=== PATIENT | male | born 1960 | race Caucasian/White ===

== ENCOUNTER 2023-04-03 09:04 | Emergency (ER) | payer OTHER, SELFPAY ==
--- NOTE | 2023-04-03 09:47 | ED.URI ---
HPI - URI/Sore Throat General Chief Complaint: Upper Respiratory Infection Stated Complaint: chest congestion Time Seen by Provider: 04/03/23 09:35 Source: patient Mode of arrival: ambulatory Limitations: no limitations History of Present Illness HPI Narrative: Eric is a 63-year-old male patient presenting to the clinic today with complaints of chest congestion and sinus congestion times 2 weeks. He reports started out as URI and gradually went down to his chest. He reports he is bringing up some yellow phlegm. Denies any fever chills but does have a lot of sinus pressure. History of sinus surgery in the past. MD elicited complaint: cough, nasal congestion, sinus pain and other Related Data Home Medications Medication Instructions Recorded Confirmed fluticasone 100 mcg-salmeterol 50 1 inh inhalation BID 04/03/23 04/03/23 mcg/dose blistr powdr for inhalation (Wixela Inhub) Allergies Allergy/AdvReac Type Severity Reaction Status Date / Time Penicillins AdvReac Mild Hives Verified 04/03/23 10:18 Review of Systems Review of Systems: Pertinent positives per HPI. Patient denies any fever, chills, rash, headache, visual changes, dizziness, cough, shortness of breath, chest pain, palpitations, nausea, vomiting, diarrhea, constipation, abdominal pain, or any urinary issues. PMFSH Comments At the time of my signature, I reviewed and agree with the nursing past medical, surgical, social, and family history. There is no relevant family history pertinent to the patient complaint. Exam Narrative: General: Well-developed, well nourished, in no apparent distress Head: Normocephalic, atraumatic Eyes: Pupils equally round and reactive to light bilaterally, EOM intact, sclera and conjunctive clear, no discharge, lids normal Ears: TMs intact and clear, ear canals clear, no drainage, grossly hearing normal. Nose: Nares patent, yellow nasal discharge, moderate inflammation, maxillary and frontal sinus tenderness. Mouth: Oral pharynx without lesions or masses, good dentition, MMM. Postnasal drip Neck: Supple, trachea midline, no enlargement of anterior or posterior cervical nodes, no thyroid masses or goiter palpable. Cardio: Regular rate and rhythm, s1 and s2 normal, no murmur appreciated. Resp: Clear to auscultation bilaterally, no rhonchi, rales, wheezing or rubs Course Course Emergency Course: Portions of this record may have been created with voice recognition software. Level of Care: Express Care Visit Vital Signs Vital signs: Vital signs reviewed MDM - URI/Sore Throat MDM Narrative Medical decision making narrative: At the time of visit patient is resting comfortably on the exam table. Patient is nontoxic appearing. Blood pressure is elevated in the clinic today and patient was notified of this. I suspect patient has a sinus infection. Prescription for doxycycline was sent to the pharmacy and discussed the use of Coricidin HBP for cough/congestion. Return precautions were reviewed. Differential Diagnosis Differential diagnosis: Likely upper respiratory infection, otitis media, sinusitis, viral infection, bronchitis, influenza, pharyngitis and other (COVID, pneumonia) Discharge Plan Discharge Clinical Impression: Acute bacterial rhinosinusitis Patient Disposition: Home, Self-Care Condition: Stable Instructions: Antibiotic Form, Rhinosinusitis (ED) Additional Instructions: Discussed patient's elevated blood pressure at the time of visit and recommend follow-up with primary care physician to have this reevaluated within the next week if symptoms persist. Take prescription medications only as prescribed-doxycycline May take Coricidin HBP for cold/flu symptoms Increase fluids and stay well hydrated Tylenol/motrin for pain/fever Flonase and OTC antihistamines as directed Vicks vapor rub to open sinuses Sinus rinses for congestion Cepacol spray, cough drops, throat lozeng
[2023-04-03 09:54] VITALS: BP 172/105; PULSE 80; RESP 20; TEMP 36.3; O2SAT 97
== END 2023-04-03 10:21 | disposition home or self-care (01) ==
PROVIDERS: Emergency Provider Nurse Practitioner Family
DX: J01.90 Acute sinusitis, unspecified (principal); B96.89 Other specified bacterial agents as the cause of diseases classified elsewhere
CPT/HCPCS: 99213; G0463

== ENCOUNTER 2023-06-17 10:34 | Emergency (ER) | payer OTHER, SELFPAY ==
[2023-06-17] VITALS (38 sets, daily range): BP systolic 121–195; BP diastolic 79–99; PULSE 69–88; RESP 12–20; TEMP 36.6–36.7; O2SAT 93–100
--- NOTE | ~2023-06-17 | CT_ITS ---
EXAMINATION: CTA chest PE protocol DATE: 06/17/2023 15:10 INDICATION: elevated d dimer TECHNIQUE: Computed tomography angiography (CTA) of the chest was performed with 100 mL Omnipaque-350 intravenous contrast timed to evaluate the pulmonary arteries. Coronal maximum intensity projection 3D-reconstructions were created by the technologist. The dose-length product (DLP) was 848.36 mGy-cm. Automated exposure control and iterative reconstruction technique were employed. COMPARISON: X-ray chest, same date. FINDINGS: Lung parenchyma and airways: Calcified granulomas. Multiple sub-6 mm pulmonary nodules. Lingular and medial right middle lobe atelectasis/scar. Airways clear. Pleura: Unremarkable. Thoracic inlet, axillae and chest wall: Unremarkable. Thoracic aorta: Minimal arch calcification. Mediastinum: Normal. Heart and pericardium: Normal. Coronary artery calcifications: Mild. Upper abdomen: No significant finding. Bones: Small chip fracture at the inferior and medial aspect of the left clavicle. Pulmonary arteries: Study quality: Slightly delayed contrast bolus. Motion artifact obscure the segme ntal arteries in in the left lower lobe. No pulmonary emboli detected. IMPRESSION: Motion artifact obscures the left lower lobe segmental arteries. Otherwise, no CT evidence of acute p ulmonary embolus. Small chip fracture at the inferior and medial aspect of the left clavicle, may be acute or chronic, correlate for history of trauma and pain/tenderness. Otherwise, no acute finding in the chest. Multiple sub-6 mm pulmonary nodules which require no additional evaluation unless the patient is at h igh risk, in which case consider an optional follow-up low-dose noncontrast CT of the chest in one ye ar. Reviewed, dictated and finalized at location K. PRESIDENT FIXED INCOME IMPRESSION: Motion artifact obscures the left lower lobe segmental arteries. Otherwise, no CT evidence of acute pulmonary embolus. Small chip fracture at the inferior and medial aspect of the left clavicle, may be acute or chronic, correlate for history of trauma and pain/tenderness. Otherwise, no acute finding in the chest. Multiple sub-6 mm pulmonary nodules which require no additional evaluation unle ss the patient is at high risk, in which case consider an optional follow-up lo w-dose noncontrast CT of the chest in one year.
--- NOTE | ~2023-06-17 | XR_ITS ---
EXAMINATION: XR chest 1V portable INDICATION: Chest pain TECHNIQUE: Portable AP chest at 1108 hours COMPARISON: None available FINDINGS: There are airspace opacities of the lung bases and left midlung zone. No pleural effusion o r pneumothorax. The cardiomediastinal silhouette is normal. IMPRESSION: 1. Airspace opacities of the lung bases and left midlung zone, consistent with atelectasis versus pne umonia. Reviewed, dictated and finalized at location A. NTORY PLANNER IMPRESSION: 1. Airspace opacities of the lung bases and left midlung zone, consistent with atelectasis versus pneumonia.
--- NOTE | 2023-06-17 10:44 | ECG_ITS ---
Measurements Intervals [place] Rate: 82 P: 53 IN: 194 QRS: 25 QRSD: 158 T: 12 QT: 396 QTc: 464 Interpretive Statements SINUS RHYTHM LEFT BUNDLE BRANCH BLOCK Electronically Signed On 06-17-2023 11:42:23 DYE HOUSE HELPER by Robby Martínez M.D.
[2023-06-17 11:00] LABS: Basophils Percent Auto 0.5 % (0.2-1.2); Eosinophils Absolute Auto 0.1 K/mm3 (0-0.3); Eosinophils Percent Auto 3.1 % (0-4.4); Hematocrit 46.4 % (42.0-52.0); Hemoglobin 15.5 g/dL (14.0-18.0); Immature Granulocyte Absolute 0.03 K/mm3 (0.00-0.031); Immature Granulocyte Percent A 0.7 % (0-0.5); Lymphocytes Absolute Auto 1.55 K/mm3 (0.9-3.2); Lymphocytes Percent Auto 37.4 % (18.3-44.2); Mean Corpuscular HGB Conc 33.4 g/dl (32-36); Mean Corpuscular Hemoglobin 30.3 pg (26-34); Mean Corpuscular Volume 90.8 fl (80-100); Mean Platelet Volume 10.8 fl (7.4-10.4); Monocytes Absolute Auto 0.4 K/mm3 (0.1-0.6); Monocytes Percent Auto 8.9 % (2.6-8.5); Neutrophils Percent Auto 49.4 % (45.5-73.1); Platelet Count Result 188 k/mm3 (150-375); Red Blood Count 5.11 M/mm3 (4.6-6.20); Red Cell Distribution Width 12.1 % (11.5-14.5); White Blood Count 4.1 K/mm3 (4.5-10.0)
--- NOTE | 2023-06-17 11:02 | ED.CHESTPAIN ---
HPI - Chest Pain General Chief Complaint: Chest Pain Stated Complaint: heart racing Time Seen by Provider: 06/17/23 10:38 History of Present Illness HPI narrative: 63 old male presenting to the emergency department for evaluation her palpitations. Patient states that he woke up this morning and was not feeling well. Patient did have breakfast and started to have a queasy sensation. Patient did check his blood pressure found it was elevated. his heart rate was in the 90s. Patient later checked his blood pressure and found it was further elevated. Patient does take medications for his blood pressure and states that is pretty well controlled. Patient has no prior history of coronary disease. Patient denied any current chest pain and patient denies any chest pain chest pressure or tightness. Patient denies any pain radiating from his chest to his neck back or arms. Related Data Home Medications Medication Instructions Recorded Confirmed fluticasone 100 mcg-salmeterol 50 1 inh inhalation BID 04/03/23 04/03/23 mcg/dose blistr powdr for inhalation (Wixela Inhub) Allergies Allergy/AdvReac Type Severity Reaction Status Date / Time Penicillins AdvReac Mild Hives Verified 06/17/23 10:56 Review of Systems Review of Systems: All systems reviewed & are unremarkable except as noted in HPI and below Exam Narrative: APPEARANCE: Well appearing, no pain, no distress, well-nourished. HEAD: normocephalic, atraumatic. EYES: PERRLA/EOMI, conjunctivae clear. NOSE: Normal no drainage NECK: Supple. No adenopathy, no masses. RESPIRATORY: Airway patent, respirations nonlabored. Clear to auscultation bilaterally, no rales, rhonchi, wheezing. CARDIOVASCULAR: Regular rate and rhythm without murmurs rubs or gallops. ABDOMINAL: Soft, nontender, nondistended, normal bowel sounds MUSCULOSKELETAL: Moves all extremities. Strength/ROM intact, No edema, No calf tenderness. NEURO: Alert. Cranial nerves II through XII intact. Grossly intact SKIN: Warm, dry. Normal Color Course Course Emergency Course: [age] year old male presenting to the emergency department for evaluation of not feeling well. Patient is afebrile with no leukocytosis and a stable hemoglobin of 15.5. Patient did have an elevated D-dimer but patient had negative serial troponins. EKG showed no evidence of acute STEMI. patient was negative for influenza RSV and for COVID. CTA showed no evidence of pulmonary embolism, possible small chip fracture on the left clavicle, pulmonary nodule that needs follow-up by primary care physician. Patient and family were updated on the results of the CT scan including the pulmonary nodules and clavicle injury. Patient denies any acute clavicle injury. Patient was updated on the results of the workup patient was encouraged close follow-up with primary care physician. All questions are addressed. Vital Signs Vital signs: Vital Signs Temperature 98.1 F 06/17/23 10:50 Pulse Rate 82 06/17/23 10:50 Respiratory Rate 16 06/17/23 10:50 Blood Pressure 195/98 H 06/17/23 10:50 Pulse Oximetry 100 06/17/23 10:50 Temperature 97.9 F 06/17/23 16:45 Pulse Rate 73 06/17/23 16:45 Respiratory Rate 18 06/17/23 16:45 Blood Pressure 152/82 H 06/17/23 16:45 Pulse Oximetry 100 06/17/23 16:45 Oxygen Delivery Room Air 06/17/23 10:56 MDM - Chest Pain Lab Data 06/17/23 10:53 06/17/23 10:53 Labs: Lab Results 06/17/23 06/17/23 06/17/23 Range/Units 10:52 10:53 11:06 WBC 4.1 L (4.5-10.0) K/mm3 RBC 5.11 (4.6-6.20) M/mm3 Hgb 15.5 (14.0-18.0) g/dL Hct 46.4 (42.0-52.0) % MCV 90.8 (80-100) fl MCH 30.3 (26-34) pg MCHC 33.4 (32-36) g/dl RDW 12.1 (11.5-14.5) % Plt Count 188 (150-375) k/mm3 MPV 10.8 H (7.4-10.4) fl Immature Gran % (Auto) 0.7 H (0-0.5) % Neut % (Auto) 49.4 (45.5-73.1) % Lymph % (Auto) 37.4 (18.3-44.2) % M
[2023-06-17 11:12] LABS: Partial Thromboplastin Time 31.2 SECONDS (22.3-36.8)
[2023-06-17 11:13] LABS: Alanine Aminotransferase 74 U/L (6-50); Albumin Level 4.7 g/dL (3.5-5.1); Alkaline Phosphatase 94 U/L (38-126); Anion Gap 8 mmol/L (8-16); Aspartate Amino Transferase 44 U/L (17-59); Bilirubin,Total 0.6 mg/dL (0.2-1.3); Blood Urea Nitrogen 25 mg/dL (9-20); Calcium 9.7 mg/dL (8.4-10.2); Carbon Dioxide 28 mmol/L (22-30); Chloride 102 mmol/L (98-107); Estimated CRCL calculation 110 ml/min; Estimated Glomerular Filt Rate > 60; Glucose 118 mg/dL (65-110); Lipase 122 U/L (23-300); Potassium 4.1 mmol/L (3.4-5.0); Sodium 138 mmol/L (137-145)
[2023-06-17 11:30] LABS: Troponin I < 0.012 ng/mL (0.000-0.034)
[2023-06-17 11:54] LABS: Influenza A QL RT-PCR Negative (Negative); Influenza B QL RT-PCR Negative (Negative); RSV RNA, RT-PCR Negative (Negative); SARS-CoV-2 RNA PCR Negative (Negative)
[2023-06-17 13:00] LABS: D Dimer 0.54 ug/mL (<0.48)
[2023-06-17 14:39] LABS: Troponin I < 0.012 ng/mL (0.000-0.034)
--- NOTE | 2023-06-17 16:07 | ECG_ITS ---
Measurements Intervals [place] Rate: 69 P: 26 [place]: 164 QRS: 1 QRSD: 159 T: 14 QT: 425 QTc: 456 Interpretive Statements SINUS RHYTHM LEFT BUNDLE BRANCH BLOCK [120+ ms QRS DURATION, 80+ ms Q/S IN V1/V2, 85+ ms R IN I/aVL/V5/V6] ABNORMAL ECG COMPARED TO ECG 06/17/2023 10:48:24 NO SIGNIFICANT CHANGES Electronically Signed On 06-18-2023 7:34:18 ADVERTISING MANAGER by Hugo Sanchez M.D.
== END 2023-06-17 16:47 | disposition home or self-care (01) ==
PROVIDERS: Emergency Provider Emergency Medicine; PCP Family Medicine
DX: R00.2 Palpitations (principal); I44.7 Left bundle-branch block, unspecified; Z20.822 Contact with and (suspected) exposure to COVID-19; R91.8 Other nonspecific abnormal finding of lung field
CPT/HCPCS: 36415; 71045; 71275; 80053; 83690; 84484; 85025; 85380; 85610; 85730; 87637; 93005; 99284; Q9967

== ENCOUNTER 2023-07-15 12:16 | Emergency (ER) | payer OTHER, SELFPAY ==
[2023-07-15 12:23] VITALS: BP 119/74; PULSE 72; RESP 18; TEMP 36.6; O2SAT 98
--- NOTE | 2023-07-15 12:49 | ED.GENADULT ---
HPI - General Adult General Chief complaint: Ear Stated complaint: Bilateral Ear Irritation Time Seen by Provider: 07/15/23 12:49 Source: patient Mode of arrival: ambulatory Limitations: no limitations History of Present Illness HPI narrative: 63-year-old male patient presents to the [facility] with complaints of bilateral ear pain that started last night And muffled hearing. Patient states more pain to the right ear than the left ear. Denies any discharge coming from the ears. Denies fevers, body aches or chills. Denies runny nose, sore throat or cough. Denies chest pain, shortness of breath. Denies any abdominal pain, nausea, vomiting or diarrhea. Patient denies taking anything for his symptoms since they started. Related Data Home Medications Medication Instructions Recorded Confirmed amlodipine 5 mg tablet mg 07/15/23 olmesartan 40 tablet 07/15/23 mg-hydrochlorothiazide 12.5 mg tablet rosuvastatin 20 mg tablet mg 07/15/23 Allergies Allergy/AdvReac Type Severity Reaction Status Date / Time Penicillins Allergy Mild Hives Verified 07/15/23 12:21 Review of Systems Review of Systems: CONSTITUTIONAL: Denies fever, chills, or sweats. EYES: Denies visual changes, redness, or discharge. ENT: Denies rhinorrhea, congestion, sore throat, positive bilateral otalgia. CARDIOVASCULAR: Denies chest pain, palpitations, or edema. RESPIRATORY: Denies cough or dyspnea. GASTROINTESTINAL: Denies abdominal pain, nausea, vomiting, or diarrhea. GENITOURINARY: Denies dysuria or hematuria. SKIN: Denies rash or itching. MUSCULOSKELETAL: Denies back pain, joint pain, or myalgia. NEUROLOGIC: Denies headache, numbness, or weakness. PSYCHIATRIC: Denies anxiety or depression. [facility] Past Medical History Medical History (Updated 07/15/23 @ 13:05 by CHANEL Lloyd) Hypertension Comments At the time of my signature I agree with nursing past medical history, surgical, social, and family history. There is no relevant family history pertinent to the presenting complaint. Exam Narrative: GENERAL: Well-appearing, well-nourished, and in no acute distress. HEAD: Normocephalic, atraumatic. EYES: PERRLA and EOMI. ENT: Nares clear, no rhinorrhea or epistaxis. Mucous membranes moist. posterior pharynx with no erythema, tonsillar enlargement, exudates or lesions present. His bilateral TMs are clear. Slight air bubbles noted behind the bilateral TMs and fluid noted but no erythema no bulging present no evidence of a bacterial infection at this time. NECK: Supple. No lymphadenopathy CHEST: Clear to auscultation. No respiratory distress. HEART: Regular rate and rhythm. No murmur heard. Normal peripheral pulses. ABDOMEN: Soft, nontender, nondistended, normal active bowel sounds. EXTREMITIES: Normal range of motion. No edema. SKIN: Warm, dry, no rash. NEURO: No focal deficits. Alert and oriented x3. Course Course Level of Care: Express Care Visit Vital Signs Vital signs: Vital Signs Temperature 36.6 C 07/15/23 12:23 Pulse Rate 72 07/15/23 12:23 Respiratory Rate 18 07/15/23 12:23 Blood Pressure 119/74 07/15/23 12:23 Pulse Oximetry 98 07/15/23 12:23 Oxygen Delivery Room Air 07/15/23 12:23 Temperature 36.6 C 07/15/23 12:23 Pulse Rate 72 07/15/23 12:23 Respiratory Rate 18 07/15/23 12:23 Blood Pressure 119/74 07/15/23 12:23 Pulse Oximetry 98 07/15/23 12:23 Oxygen Delivery Room Air 07/15/23 12:23 vital signs reviewed. Medical Decision Making MDM Narrative Medical decision making narrative: Plan care patient is discharged home and encouraged [id number] antihistamine or coerce eaten and an [id number] Flonase to help decrease the fluid behind the ears. Please follow-up with primary doctor if symptoms continue to worsen. Differential Diagnosis Differential Diagnosis: Differential diagnosis: Otitis media, otitis externa, perforated TM, infection of the o
== END 2023-07-15 13:06 | disposition home or self-care (01) ==
PROVIDERS: Emergency Provider Nurse Practitioner Family; PCP Family Medicine
DX: H73.893 Other specified disorders of tympanic membrane, bilateral (principal); I10 Essential (primary) hypertension; Z79.899 Other long term (current) drug therapy
CPT/HCPCS: 99211; G0463

== ENCOUNTER 2024-02-19 13:30 | Outpatient (RCR) | payer MEDICARE, SELFPAY ==
[2024-01-18 08:43] VITALS: BP 118/68; PULSE 69; RESP 18; O2SAT 97
[2024-01-18 09:08] VITALS: PULSE 69
== END 2024-03-13 15:34 | disposition home or self-care (01) ==
LOC: ANHCPREHAB 13:30
PROVIDERS: PCP Family Medicine; Visit Provider Internal Medicine Cardiovascular Disease
DX: Z95.5 Presence of coronary angioplasty implant and graft (principal)
CPT/HCPCS: 93798